=== PATIENT | male | born 1995 | race Two or more races ===

== ENCOUNTER 2021-07-24 19:02 | Emergency (ER) | payer SELFPAY ==
[~2021-07-24] VITALS: Ht 170.2 cm; Wt 70.3 kg
[2021-07-24 19:03] VITALS: BP 148/100
== END 2021-07-24 20:22 | disposition left against medical advice (07) ==
LOC: ER 19:02
DX: S09.90XA Unspecified injury of head, initial encounter (principal); Z53.21 Procedure and treatment not carried out due to patient leaving prior to being seen by health care provider; W22.8XXA Striking against or struck by other objects, initial encounter; Y93.89 Activity, other specified; Y92.89 Other specified places as the place of occurrence of the external cause; Y99.8 Other external cause status